=== PATIENT | female | born 1985 | race Two or more races ===

== ENCOUNTER 2017-09-02 21:09 | Emergency (ER) | payer SELFPAY ==
[2017-09-02 21:27] VITALS: RESP 20; TEMP 98.6
[2017-09-02 22:09] LABS: BASOPHILS % (AUTO) 1 % (0-3); EOSINOPHILS % (AUTO) 3 % (0-9); HEMATOCRIT 34 % (35-47); MEAN CORPUSCULAR HGB CONC 29.8 gm/dl (32.0-36.0); MONOCYTES % (AUTO) 6.5 % (0-12); NEUTROPHILS % (AUTO) 62.8 % (37-80)
[2017-09-02 22:20] LABS: AMPHETAMINES NEGATIVE (NEGATIVE); METHADONE NEGATIVE (NEGATIVE); OPIATES(OP13) NEGATIVE (NEGATIVE); OXYCODONE(OXY) NEGATIVE (NEGATIVE); PROPOXYPHENE(PPX) NEGATIVE (NEGATIVE); TRICYCLIC ANTIDEPRESSANTS NEGATIVE (NEGATIVE)
[2017-09-02 22:24] LABS: ALT 24 IU/L (14-63); CALCIUM 8.2 mg/dl (8.5-10.1); GLOM FILT RATE 97 mL/min (>60); POTASSIUM 3.8 mMol/L (3.5-5.1); SODIUM 139 mMol/L (136-145)
[2017-09-02 22:29] LABS: MEAN CORPUSCULAR VOLUME 71 fL (81-99)
[2017-09-02 22:30] LABS: ANISOCYTOSIS SLIGHT AMT; HYPOCHROMASIA PRESENT
[2017-09-02 22:31] LABS: TARGET CELLS PRESENT
[2017-09-02 22:34] LABS: APPEARANCE,URINE Clear; BILIRUBIN,URINE NEGATIVE (NEGATIVE); COLOR,URINE Yellow; GLUCOSE, URINE (UA) NEGATIVE (NEGATIVE); KETONES,URINE NEGATIVE (NEGATIVE); LEUKOCYTE ESTERASE ,URINE 1+ (NEGATIVE); NITRATE,URINE NEGATIVE (NEGATIVE); OCCULT BLOOD,URINE 1+ (NEG-TRACE); PH,URINE 5.5; UROBILINOGEN,URINE 0.2 (0.2-1.0 EU)
[2017-09-02 23:13] VITALS: BP 130/91; PULSE 91; O2SAT 100
== END 2017-09-02 23:10 | disposition home or self-care (01) | DRG 914 ==
LOC: ED 21:09
DX: S09.90XA Unspecified injury of head, initial encounter (principal); M25.532 Pain in left wrist; S50.02XA Contusion of left elbow, initial encounter; W10.1XXA Fall (on)(from) sidewalk curb, initial encounter
CPT/HCPCS: 36415; 70450; 73090; 80053; 80305; 80307; 81001; 84703; 85025; 87088; 99282; 99283